=== PATIENT | male | born 1950 | race Asian ===

== ENCOUNTER 2019-10-02 09:23 | Emergency (ER) | payer OTHER ==
[~2019-10-02] VITALS: Ht 167.6 cm; Wt 60.3 kg
[2019-10-02 09:27] VITALS: Ht 167.6 cm; Wt 60.3 kg
[2019-10-02 11:46] VITALS: BP 120/65
== END 2019-10-02 11:44 | disposition home or self-care (01) ==
LOC: ED 09:23
DX: S01.112A Laceration without foreign body of left eyelid and periocular area, initial encounter (principal); I10 Essential (primary) hypertension; E11.9 Type 2 diabetes mellitus without complications; W18.30XA Fall on same level, unspecified, initial encounter; Y93.89 Activity, other specified; Y92.89 Other specified places as the place of occurrence of the external cause; Y99.8 Other external cause status
CPT/HCPCS: 90715; J2001

== ENCOUNTER 2019-10-08 09:06 | Emergency (ER) | payer OTHER ==
[~2019-10-08] VITALS: Ht 152.4 cm; Wt 67.6 kg
[2019-10-08 09:36] VITALS: Ht 152.4 cm; Wt 67.6 kg
[2019-10-08 11:04] VITALS: BP 137/56
== END 2019-10-08 11:04 | disposition home or self-care (01) ==
LOC: ED 09:06
DX: S01.112D Laceration without foreign body of left eyelid and periocular area, subsequent encounter (principal); I10 Essential (primary) hypertension; E11.9 Type 2 diabetes mellitus without complications; G20 Parkinson's disease; X58.XXXD Exposure to other specified factors, subsequent encounter

== ENCOUNTER 2020-06-15 15:18 | Emergency (ER) | payer OTHER, BC ==
[~2020-06-15] VITALS: Ht 167.6 cm; Wt 72.6 kg
[2020-06-15 15:44] VITALS: Ht 167.6 cm; Wt 72.6 kg
[2020-06-15 20:18] VITALS: BP 183/83
== END 2020-06-15 20:18 | disposition left against medical advice (07) ==
LOC: ED 15:18
DX: S72.011A Unspecified intracapsular fracture of right femur, initial encounter for closed fracture (principal); S80.01XA Contusion of right knee, initial encounter; S90.212A Contusion of left great toe with damage to nail, initial encounter; I10 Essential (primary) hypertension; E11.9 Type 2 diabetes mellitus without complications; Z86.69 Personal history of other diseases of the nervous system and sense organs; W01.0XXA Fall on same level from slipping, tripping and stumbling without subsequent striking against object, initial encounter; Y93.89 Activity, other specified; Y92.89 Other specified places as the place of occurrence of the external cause; Y99.8 Other external cause status
CPT/HCPCS: Q0092